=== PATIENT | male | born 1950 | race Caucasian/White ===

== ENCOUNTER → 2020-12-18 | Outpatient (CLI) | payer OTHER, MEDICARE ==
[~2020-12-18] MED LIST: BIMA2.5D OP; CALC-98 PO; CLOT15CR5 TP; METF850T8 PO; MULT-246 PO; PIOG1TAB24 PO; SIMV20TA18 PO; TRAM50TA PO; ZOLP10TA PO; ZOLP10TA4 PO
--- NOTE | 2020-12-18 15:44 | RAD ---
EXAM: AP, lateral and oblique views of the left knee DATE: 12/18/2020 11:09 AM CLINICAL INDICATION: Reason: KNEE PAIN / Spl. Instructions: / History: COMPARISON: None. FINDINGS: Negative for acute or subacute fracture. Regional joint spaces are preserved. Negative focal soft ti ssue swelling. Negative retained radiopaque foreign body. There is no large joint effusion. Atheroscl erotic vascular calcifications are seen. Patellar enthesopathy. IMPRESSION: 1. No acute osseous abnormality. 2. Patellar enthesopathy. 3. Atherosclerotic vascular calcifications are seen. Electronically signed by: Soto Radford MD (12/18/2020 3:42 PM) [id number]
== END ==
LOC: PMG 10:58
PROVIDERS: ATTEND Family Medicine
DX: M76.52 Patellar tendinitis, left knee (principal)
CPT/HCPCS: 73562